=== PATIENT | female | born 1995 | race Caucasian/White ===

== ENCOUNTER 2018-09-10 09:13 | Emergency (ER) | payer MEDICAID, OTHER ==
[2018-09-10] MEDS: HYDROCODONE/APAP (5/325) TAB PO (10:09)
== END 2018-09-10 11:33 | disposition home or self-care (01) ==
LOC: E/R 09:13
DX: S46.912A Strain of unspecified muscle, fascia and tendon at shoulder and upper arm level, left arm, initial encounter (principal); R07.9 Chest pain, unspecified; V49.40XA Driver injured in collision with unspecified motor vehicles in traffic accident, initial encounter
CPT/HCPCS: 71045; 73060; 81025; 99284-25